=== PATIENT | female | born 1945 | race Caucasian/White ===

== ENCOUNTER 2016-09-29 11:22 | Emergency (ER) | payer OTHER ==
[2016-09-29 11:29] VITALS: RESP 18
--- NOTE | 2016-09-29 11:36 | EDPHY ---
HPI/HX/ROS/PE/MDM Narrative: CHIEF COMPLAINT: Headache HPI: This patient is a 71 year old female who presents to the Emergency Department complaining of episodic headaches with associated blurred vision beginning on Wednesday and persisting to the present. Each episode begins with a brief period of blurred vision that subsides before she experiences 10-15 minutes of a moderate to severe headache generalized to her entire scalp. She denies paresthesias, difficulty walking, or additional neurological complaints. She also reports blood pressure spikes over the past few days as well. She does not take medications for hypertension. She denies significant history of headaches in the past. REVIEW OF SYSTEMS: Aside from elements discussed in the HPI, a comprehensive 10-point review of systems was reviewed and is negative. PMH: Remote history of vertigo SOCIAL HISTORY: Sister at bedside PHYSICAL EXAM: General:Patient is alert, in no acute distress. ENT:Eyes are normal to inspection. ENT inspection normal. Neck: Normal inspection. Full range of motion. Respiratory:No respiratory distress. Breath sounds normal bilaterally. Cardiovascular: Regular rate and rhythm. Strong peripheral pulses. Normal cap refill. Abdomen:The abdomen is nontender to palpation. There are no peritoneal signs. There are normal bowel sounds. Back: Normal to inspection. No tenderness to palpation. Skin: Normal color. No rash. Warm and dry. Extremities: Normal appearance. Full range of motion. Neuro: Oriented x3. Normal motor function. Normal sensory function. ED Course: This 71 year old female presents with a total of six episodes of brief 10-15 minute headaches precipitated by blurred vision beginning on Wednesday and increasing in pain severity over time. She reports intermittent hypertensive episodes and is hypertensive at triage at 192/93. Her exam is otherwise benign. Will proceed with CT of the head and labs. IV established. 1.5L IV NS and 30mg IV Ketorolac administered for headache. The patient declined Benadryl and Reglan. 1200: Repeat BP 162/99. The patient reports that her headache severity has improved since taking the Ketorolac. Awaiting imaging results at this time. 1215: CT of the head is normal per Dr. Ivory, radiology. MDM: This patient presents with multiple headaches accompanied by elevated BP over the last few days. Her neurologic exam is normal, her CTH is normal, and her symptoms have resolved after toradol. I explained to her and her sister that it is unusual to develop a new headache at this point in life, and that the etiology of her headaches is currently unknown. I see no signs of ACS, CVA, SAH , SDH or seizure. I offered admission to the hospital for observation and/or MRI but patient declines. She understands risks of refusal. She will return to ED if symptoms do not improve by tomorrow. - Data Points Imaging Results: Imaging Impressions Head CT 09/29/16 11:55 Impression: 1. No significant intracranial abnormality seen. Findings discussed with Tu Parker MD at 12:14 hour, 09/29/2016. Laboratory Results: Laboratory Results 09/29/16 11:48 09/29/16 11:48 09/29/16 09/29/16 11:48 11:48 WBC 6.36 10^3/uL 10^3/uL (3.80-9.50) RBC 4.35 10^6/uL 10^6/uL (4.18-5.33) Hgb 13.6 g/dL g/dL (12.6-16.3) Hct 40.2 % % (38.0-47.0) MCV 92.4 fL fL (81.5-99.8) MCH 31.3 pg pg (27.9-34.1) MCHC 33.8 g/dL g/dL (32.4-36.7) RDW 13.2 % % (11.5-15.2) Plt Count 309 10^3/uL 10^3/uL (150-400) MPV 10.0 fL fL (8.7-11.7) Neut % (Auto) 48.6 % % (39.3-74.2) Lymph % (Auto) 39.2 % % (15.0-45.0) Stanton % (Auto) 10.2 % % (4.5-13.0) Eos % (Auto) 0.9 % % (0.6-7.6) Baso % (Auto) 0.8 % % (0.3-1.7) Nucleat RBC Rel Count 0.0 % % (0.0-0.2) Absolute Neuts (auto) 3.09 10^3/uL 10^3/uL (1.70-6.50) Absolute Lymphs (auto) 2.49 10^3/uL 10^3/uL (1.00-3.00) Absolute Monos (auto) 0.65 10^3/uL 10^3/uL (0.30-0.80) Absolute Eos (auto) 0.06 10^3/uL 10^3/uL (0.03-0.40) Absolute Basos (auto) 0.05 10^3/uL 10^3/uL (0.02-0.10) Absolute Nucleated RBC 0.00 10^3/uL 10^3/uL (0-0.01) Immature Gran % 0.3 % % (0.0-1.1) Immature Gran # 0.02 10^3/uL 10^3/uL (0.00-0.10) Sodium 135 mEq/L mEq/L (134-144) Potassium 4.5 mEq/L mEq/L (3.5-5.2) Chloride 102 mEq/L mEq/L (97-110) Carbon Dioxide 24 mEq/l mEq/l (22-31) Anion Gap 9 mEq/L mEq/L (8-16) BUN 13 mg/dL mg/dL (7-23) Creatinine 0.7 mg/dL mg/dL (0.6-1.0) Estimated GFR > 60 Glucose 94 mg/dL mg/dL (70-100) Calcium 9.4 mg/dL mg/dL (8.5-10.4) Troponin I < 0.012 ng/mL ng/mL (0-0.034) Medications Given: Discontinued Medications Sodium Chloride (Ns) 500 mls @ 0 mls/hr IV ONCE ONE PRN Reason: Wide Open Stop: 09/29/16 11:55 Last Admin: 09/29/16 12:02 Dose: Not Given Sodium Chloride (Ns) 1,000 mls @ 0 mls/hr IV ONCE ONE PRN Reason: Wide Open Stop: 09/29/16 11:55 Last Admin: 09/29/16 12:02 Dose: 1,000 mls Ketorolac Tromethamine (Toradol) 30 mg IVP EDNOW ONE Stop: 09/29/16 11:56 Last Admin: 09/29/16 12:24 Dose: 30 mg General Time Seen by Provider: 09/29/16 11:32 Initial Vital Signs: Initial Vital Signs Temperature (C) 36.9 C 09/29/16 11:24 Heart Rate 69 09/29/16 11:24 Respiratory Rate 18 09/29/16 11:24 Blood Pressure 192/93 H 09/29/16 11:24 O2 Sat (%) 97 09/29/16 11:24 O2 Delivery Mode Room Air Allergies/Adverse Reactions: Penicillins Allergy (Mild, Verified 09/29/16 11:29) Rash Sulfa (Sulfonamide Antibiotics) Allergy (Mild, Verified 09/29/16 11:30) Rash Home Medications: Medication Instructions Recorded Citalopram Hydrobromide [celeXA 10 10 mg PO DAILY 09/29/16 MG] Departure - Departure Disposition: Home, Routine, Self-Care Clinical Impression: Headache Qualifiers: Headache type: unspecified Headache chronicity pattern: acute headache Intractability: not intractable Qualified Code(s): R51 - Headache Condition: Good Instructions: Acute Headache (ED) Additional Instructions: 1. Treat your headache symptoms with up to 600mg Ibuprofen every 6 hours. 2. Follow-up with your primary care provider for further evaluation if your headaches do not subside in the next 3-5 days. 3. Return to the Emergency Department if you experience one-sided numbness or weakness, slurred speech, vision loss, severe uncontrollable headache, or other serious concerns, or if symptoms in any way. Referrals: Cortney Santillan MD [Medical Doctor] - As per Instructions Kiko An MD [Medical Doctor] - As per Instructions Report Scribed for: Tu Parker Report Scribed by: Lani Alejandre Date of Report: 09/29/16 Time of Report: 11:36 Physician Review and Approval Statement: Portions of this note were transcribed by an ED scribe. I personally performed the history, physical exam, and medical decision making; and confirm the accuracy of the information in the transcribed note.
[2016-09-29] MEDS ORDERED: NS 500 ML IV ONE (11:54)
[2016-09-29] MEDS ORDERED: NS 1,000 ML IV ONE (11:54)
[2016-09-29] MEDS ORDERED: METOCLOPRAMIDE 10 MG/2 ML VIAL IVP ONE (11:55)
[2016-09-29] MEDS ORDERED: KETOROLAC 30 MG/1 ML SDV IVP ONE (11:55)
[2016-09-29 12:01] LABS: % IMMATURE GRANULYOCYTES 0.3 % (0.0-1.1); ABSOLUTE IMMATURE GRANULOCYTES 0.02 10^3/uL (0.00-0.10); ADD DIFF? NO; ADD MORPH? NO; ADD SCAN? NO; ATYPICAL LYMPHOCYTE FLAG 30 (0-99); FRAGMENT RBC FLAG 0 (0-99); HEMATOCRIT 40.2 % (38.0-47.0); HEMOGLOBIN 13.6 g/dL (12.6-16.3); LEFT SHIFT FLG 0 (0-99); LIPEMIA HEMOLYSIS FLAG 90 (0-99); MEAN CELL HEMOGLOBIN 31.3 pg (27.9-34.1); MEAN CELL HEMOGLOBIN CONCENTR. 33.8 g/dL (32.4-36.7); MEAN CELL VOLUME 92.4 fL (81.5-99.8); PLATELET CLUMPS FLAG 0 (0-99); PLATELET COUNT 309 10^3/uL (150-400); RED BLOOD CELL COUNT 4.35 10^6/uL (4.18-5.33); RED CELL DISTRIBUTION WIDTH 13.2 % (11.5-15.2)
[2016-09-29 12:21] LABS: ANION GAP 9 mEq/L (8-16); CALCIUM 9.4 mg/dL (8.5-10.4); CARBON DIOXIDE 24 mEq/l (22-31); CHLORIDE 102 mEq/L (97-110); CREATININE 0.7 mg/dL (0.6-1.0); GLOMERULAR FILTRATION RATE > 60; GLUCOSE 94 mg/dL (70-100); POTASSIUM 4.5 mEq/L (3.5-5.2); SODIUM 135 mEq/L (134-144)
[2016-09-29 12:25] VITALS: O2SAT 96
--- NOTE | 2016-09-29 12:26 | CPEKG ---
Heart Rate: 61 RR Interval: 984 P-R Interval: 127 QRSD Interval: 94 QT Interval: 436 QTC Interval: 440 P Cumming: 52 QRS Cumming: 18 T Wave Cumming: 42 EKG Severity - ABNORMAL ECG - EKG Impression: SINUS RHYTHM EKG Impression: SUPRAVENTRICULAR BIGEMINY Electronically Signed By: Tu Parker 29-Sep-2016 15:11:25
[2016-09-29 12:31] LABS: TROPONIN I < 0.012 ng/mL (0-0.034)
[2016-09-29 13:34] VITALS: BP 165/85; PULSE 71; TEMP 98.1
== END 2016-09-29 13:33 | disposition home or self-care (01) ==
DX: R51 Headache (principal)
CPT/HCPCS: 70450; 93005; 96361; 96374; 99285; J1885

== ENCOUNTER → 2016-11-19 | Outpatient (CLI) | payer OTHER | LOC: FIMAGING 07:47 | PROVIDERS: ATTEND Family Medicine | DX: Z12.31 Encounter for screening mammogram for malignant neoplasm of breast (principal); Z80.3 Family history of malignant neoplasm of breast | CPT/HCPCS: G0202 ==

== ENCOUNTER → 2017-12-15 | Outpatient (CLI) | payer OTHER | LOC: FIMAGING 08:15 | PROVIDERS: ATTEND Family Medicine | DX: Z12.31 Encounter for screening mammogram for malignant neoplasm of breast (principal); Z80.3 Family history of malignant neoplasm of breast ==

== ENCOUNTER → 2018-01-25 | Outpatient (CLI) | payer OTHER | LOC: FIMAGING 09:16 | PROVIDERS: ATTEND Family Medicine | DX: Z13.820 Encounter for screening for osteoporosis (principal); M81.0 Age-related osteoporosis without current pathological fracture ==